=== PATIENT | male | born 1985 | race Caucasian/White ===

== ENCOUNTER → 2021-10-18 | Outpatient (CLI) | payer OTHER ==
--- NOTE | 2021-10-18 16:21 | US ---
EXAMINATION TYPE: US liver DATE OF EXAM: 10/18/2021 COMPARISON: NONE CLINICAL HISTORY: R94.5 ELEVATED LFTs. Elevated liver enzymes. Hx appendix removed. EXAM MEASUREMENTS: Liver Length: 15.5 cm Gallbladder Wall: 0.21 cm CBD: 0.22 cm Right Kidney: 11.6 x 6.0 x 5.4 cm Limited due to gas. Pancreas: No abnormalities seen. Liver: Hyperechoic focus seen within the right lobe: 0.8 x 0.8 x 0.9 cm. Gallbladder: Appears distended measuring 10.3 cm in length. Some internal echoes are seen within the gallbladder as the patient turned LLD. Evidence for sonographic Alexander's sign: No CBD: Portions seen appear wnl Right Kidney: No hydronephrosis or masses seen IMPRESSION: 1. Gallbladder sludge. 2. Probable hepatic hemangioma which could be confirmed with CT of the liver.
== END | disposition home or self-care (01) ==
LOC: RADUSWWP 15:07
DX: R94.5 Abnormal results of liver function studies (principal)
CPT/HCPCS: 76705